=== PATIENT | female | born 1955 | race Caucasian/White ===

== ENCOUNTER → 2020-03-02 | Outpatient (CLI) | payer OTHER ==
--- NOTE | 2020-03-08 14:51 | MAM ---
EXAM DESCRIPTION: 3D Screening BILATERAL : Digital Mammography. CLINICAL HISTORY: 64 years Female SCREEN . No complaints or personal history of breast cancer. Mother with breast cancer at age 75. Menarche age 15. Childbirth age 21. HRT 5 or more years ago.. Lifetime risk of developing breast cancer (Tyrer-Cuzick model)(%): 12.5. COMPARISON: 2-D digital screening bilateral mammography July 2013. No prior reports available. TECHNIQUE: Bilateral CC and MLO projection full-field images, digital tomosynthesis mammographic technique. Bilateral digital 2-D full-field MLO images. CAD available for 2-D images. FINDINGS: The breast parenchymal density pattern is: Scattered areas of fibroglandular density. No skin thickening or nipple retraction. Scattered solitary regional microcalcifications lateral aspect middle third left breast. Skin mole marker inferior mid left breast. No new focal, stellate mass or density, focal asymmetry , and no suspicious microcalcifications . Stable mammograms compared to prior study. Taking into account, differences in mammographic technique. IMPRESSION: Benign exam. BIRAD CATEGORY: 2 BENIGN FINDINGS. RECOMMENDATIONS: FOLLOW UP: Routine digital bilateral mammographic screening, one year interval from February 2020. Written communication explaining the IMPRESSION and follow-up, will be mailed to the patient and referring health care provider. According to the [employer], yearly mammograms are recommended starting at age 40 and continuing as long as a woman is in good health. Any breast change noted on a breast self-exam should be reported promptly to the patient's healthcare provider. Breast MRI is recommended for women with an approximately 20-25% or greater lifetime risk of breast cancer, including women with a strong family history of breast or ovarian cancer and women who have been treated for Hodgkin's disease. A negative mammographic report should not delay tissue diagnosis in patients with significant clinical history or physical findings. Extremely dense breast tissue limits the sensitivity of digital mammography. Electronically signed by: Dar Roland MD 03/08/2020 2:49 PM CDT
== END ==
LOC: MAMMO 13:37
PROVIDERS: ATTEND Nurse Practitioner Family
DX: Z12.31 Encounter for screening mammogram for malignant neoplasm of breast (principal)

== ENCOUNTER → 2020-07-27 | Outpatient (CLI) | payer OTHER ==
--- NOTE | 2020-07-28 12:28 | MRI ---
EXAM DESCRIPTION: Cervical Spine: MRI. CLINICAL HISTORY: 65 years Female CERVICAL RADICULOPATHY COMPARISON: Prior scan performed at this facility without and with gadolinium IV contrast in October 2007 is not available at the time of interpretation. TECHNIQUE: Multiplanar, high-field MRI, multiple sequences, non-contrast Cervical spine. FINDINGS: Prior anterior cervical disc fusion C4-C7 levels. No canal or neural foraminal stenosis at C4-C5: Facet joints are negative. No canal or neural foraminal stenosis at C5-C6. Mild to moderate narrowing left neuroforamen. Facet joints are negative. No canal or neural foraminal stenosis at C6-C7. Mild narrowing of the neural foramen. No cord impingement at any of these levels. C3-C4: Disc desiccation and minimal disc space loss. Posterior midline bulge of the disc 3 mm touching the cord. Minimal bilateral facet hypertrophy. Bilateral uncinate spurs. Bilateral borderline neural foraminal stenosis. Moderate canal narrowing. C7-T1: Minimal disc desiccation with no significant bulging. Minimal facet arthrosis on the right. Minimal right neural foraminal narrowing. Canal and neural foramen are patent. Normal signal in the C2-C3 disc and T1-T2 Disc with no bulging. Disc spaces preserved. Canal and neural foramina are patent. Facet joints are unremarkable. Spinal alignment maintained. No cord compression or cord edema. Atlantoaxial joint minimal hypertrophy. Base of the cerebellar tonsils is at the level of the foramen magnum. Paravertebral soft tissues showing posterior paraspinal fatty atrophy. Vertebral bodies are not compressed at any level. Normal with marrow signal in the remaining vertebral bodies and the posterior elements. IMPRESSION: 1. Posterior midline bulge of the C3-C4 disc touching the cord with moderate canal narrowing. Bilateral uncinate spurs and mild bilateral facet hypertrophy with borderline to mild bilateral neural foraminal stenosis. Correlate for C4 radiculopathy. 2. ACDF C4-C7. No hardware complications. No canal or neural foraminal stenosis at these levels. No cord impingement. Electronically signed by: Dar Roland MD 07/28/2020 12:26 PM [facility]
== END ==
LOC: MRI 14:00
PROVIDERS: ATTEND Physician Assistant
DX: M50.10 Cervical disc disorder with radiculopathy, unspecified cervical region (principal); M48.02 Spinal stenosis, cervical region; Z98.1 Arthrodesis status; M25.78 Osteophyte, vertebrae